=== PATIENT | female | born 1990 | race Caucasian/White ===

== ENCOUNTER 2017-03-17 11:27 | Emergency (ER) | payer MEDICAID ==
[~2017-03-17] VITALS: Ht 152.4 cm; Wt 59.0 kg
[2017-03-17 11:30] VITALS: BP 103/67
[2017-03-17] MEDS ORDERED: OXYC-323 PO (12:02)
--- NOTE | 2017-03-17 12:02 | PHYS DOC ---
Past History Past Medical History: No Pertinent History Past Surgical History: , Hysterectomy Smoking: Cigarettes Alcohol Use: None Drug Use: None Adult General Chief Complaint Chief Complaint: DENTAL PROBLEM [facility] HPI She is a pleasant otherwise healthy 26-year-old female who was seen last week for dental abscess that developed above #14 and 15 tooth. She took a week of antibiotics, a course of amoxicillin, without issue once her pain and abscess was well treated she underwent a root canal 2 days ago. Patient is noted increased pain and swelling along the site she had a tooth extraction. She is also noted a small erosion in the lip on the left. She denies any fevers, chills just pain is not well controlled 800 mg Motrin. She was prescribed. She denies any nausea, vomiting she does have a mild facial pain with headache on the side of her jaw. She has follow-up on Monday with her primary dentist. The dentist also did continue to treat her with amoxicillin. Patient's chart demonstrates an adverse reaction to amoxicillin and penicillins and the patient adamantly denies that she shows a problem with these medications. Review of Systems Review of Systems Constitutional: Denies fever or chills [] Eyes: Denies change in visual acuity, redness, or eye pain [] HENT: Denies nasal congestion or sore throat patient mainly complains of dental pain localized swelling around the surgical site.[] Respiratory: Denies cough or shortness of breath [] Cardiovascular: No additional information not addressed in HPI [] GI: Denies abdominal pain, nausea, vomiting, bloody stools or diarrhea [] : Denies dysuria or hematuria [] Musculoskeletal: Denies back pain or joint pain [] Integument: Denies rash or skin lesions [] Neurologic: Denies headache, focal weakness or sensory changes [] Allergies Allergies Allergies Coded Allergies Type Severity Reaction Last Updated Verified Amoxicillin Allergy Intermediate rash 10/14/13 No Penicillins Allergy Intermediate rash 10/14/13 No Physical Exam Physical Exam Vital signs recorded on the chart within normal limits. Constitutional: Well developed, well nourished, patient is obviously uncomfortable but nontoxic in appearance she does have some obvious localized swelling to the left side of her face were dental extraction occurred.. [] HENT: Normocephalic, atraumatic, bilateral external ears normal, oropharynx moist, no oral exudates, she has no evidence of buccal cellulitis she does have some soft tissue swelling along the gingival mucosa that was immediately placed in surgery. She is a small circular contusion and lesion to the inside of the left lip which is like secondary to the trauma that she sustained while getting the tooth extracted with overall bite block. She has no evidence of abscess or rash on the face. Nose normal. There is no active bleeding or other noted foreign body within the socket of the extracted #14 tooth. [] Eyes: PERRLA, EOMI, conjunctiva normal, no discharge. [] Neck: Normal range of motion, no tenderness, supple, no stridor. No anterior cervical lymphadenopathy Cardiovascular:Heart rate regular rhythm, no murmur [] Lungs & Thorax: Bilateral breath sounds clear to auscultation [] Skin: Warm, dry, no erythema, no rash. [] Neurologic: Alert and oriented X 3, normal motor function, normal sensory function, no focal deficits noted. Cranial nerves II-12 are intact with a normal speech pattern[] Psychologic: Patient is uncomfortable but her judgment is normal. EKG EKG [] Radiology/Procedures Radiology/Procedures [] Course & Med Decision Making Course & Med Decision Making Pertinent Labs and Imaging studies reviewed. (See chart for details) []Patient presents with soft tissue swelling and pain secondary to dental extraction. Given the timetable doubt that she has had time to develop an abscess within the structure of the gingiva. Patient is on only Motrin which is inadequate for treating her discomfort. Patient is only looking for symptomatically treatment of her pain. She is on amoxicillin which she is tolerating well although it is documented she has an allergy to penicillins and amoxicillin. She is taking them without issue in the past. She has follow-up on Monday with her present dentist Marie Disclaimer Marie Disclaimer This chart was dictated in whole or in part using Voice Recognition software in a busy, high-work load, and often noisy Emergency Department environment. It may contain unintended and wholly unrecognized errors or omissions. Departure Departure: Impression: Primary Impression: Pain, dental Additional Impression: Status post tooth extraction Disposition: HOME, SELF-CARE Condition: STABLE Referrals: PCP,NO (PCP) Patient Instructions: Dental Dry Socket, Pain Relief Preoperatively and Postoperatively Additional Instructions: My discharge plan Follow up: In addition patient is asked to followup with their primary doctor, within a week for followup examination and to address patient's ongoing medical conditions. Because patient does not have a regular medical doctor, a local physician Resource Sheet will be provided to establish care primary care. Patient is advised that in the Emergency Department primary complaints are addressed and only in light of known signs and symptoms. Patient should return immediately to the emergency department if new signs and symptoms develop or patient's condition worsens in any way. At time of discharge patient was in stable condition and had verbalized understanding of the discharge instructions. Scripts Oxycodone Hcl/Acetaminophen (PERCOCET 5-325 MG TABLET) 1 Each Tablet 1-2 TAB PO Q4-6HRS, #15 TAB Prov: FINA KING MD 03/17/17 Problem Qualifiers IFNA KING MD Mar 17, 2017 12:02
== END 2017-03-17 13:15 | disposition home or self-care (01) ==
LOC: ER 11:27
DX: K08.89 Other specified disorders of teeth and supporting structures (principal); R22.0 Localized swelling, mass and lump, head; K13.0 Diseases of lips; F17.210 Nicotine dependence, cigarettes, uncomplicated; Z98.818 Other dental procedure status; Z88.0 Allergy status to penicillin; Z88.1 Allergy status to other antibiotic agents
CPT/HCPCS: 99283

== ENCOUNTER 2021-01-19 16:36 | Emergency (ER) | payer SELFPAY ==
[~2021-01-19] VITALS: Ht 152.4 cm; Wt 70.8 kg
[~2021-01-19 16:36] MED LIST: OXYC1TAB15 PO
[2021-01-19 16:50] VITALS: BP 105/58
--- NOTE | 2021-01-19 17:39 | PHYS DOC ---
Past History Past Medical History: No Pertinent History Past Surgical History: , Hysterectomy Smoking: Cigarettes Alcohol Use: None Drug Use: None General Adult EDM: Chief Complaint: MECHANICAL FALL HPI: HPI: ".. We have [place] moved here from [place].... and we have the new kittens.. 5.. of them.. I had this fence like around them.. I went to step over.. and tripped.. fell on butt and lower back.. and twisted this lower Rt. ankle and foot really bad....I tried Ibuprofen.. but it did not help the pain at all..." Patient is a 30 year old female who presents with above hx with complaints of low back Rt. ankle /foot injury. Patient localizes pain in lumbar sacral area. Radiates into both gluteal areas. There is some midline tenderness. Patient reports no saddle loss. DTR are +2 at patella. Patient localizes pain and right forefoot and ankle. Does have some edema. There is positive foot squeeze. Distal cap refill is equal to the left foot. Patient is unable to bear weight due to pain. Patient denies other injury at this time. Patient rates her pain as 8-9 out of 10. Nothing has helped relieve it at home such as ibuprofen. Patient injury occurred just before arrival. 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 Patient has past medical history of hysterectomy. No history immunosuppression. No travel outside the [place] area. No specific ill contacts. Has not been following with primary care recently. Review of Systems: Review of Systems: Constitutional: Denies fever or chills Eyes: Denies change in visual acuity HENT: Denies nasal congestion or sore throat Respiratory: Denies cough or shortness of breath Cardiovascular: Denies chest pain or edema GI: Denies abdominal pain, nausea, vomiting, bloody stools or diarrhea : Denies dysuria Musculoskeletal: Complains of severe lower back pain and right ankle and foot pain Integument: Denies rash Neurologic: Denies headache, focal weakness or sensory changes Endocrine: Denies polyuria or polydipsia Lymphatic: Denies swollen glands Psychiatric: Denies depression or anxiety Family History: Family History: Noncontributory to presentation Current Medications: Current Meds: See nursing for home meds Allergies: Allergies: Allergies Coded Allergies Type Severity Reaction Last Updated Verified No Known Drug Allergies 01/19/21 No Physical Exam: PE: Constitutional: in acute distress, non-toxic appearance. [] HENT: Normocephalic, atraumatic, bilateral external ears normal, oropharynx moist, no oral exudates, nose normal. [] Eyes: PERRLA, EOMI, conjunctiva normal, no discharge. [] Neck: Normal range of motion, no tenderness, supple, no stridor. [] Cardiovascular:Heart rate regular rhythm, no murmur [] Lungs & Thorax: Bilateral breath sounds clear to auscultation [] Abdomen: Bowel sounds normal, soft, no tenderness, no masses, no pulsatile masses. Old surgical scar. Skin: Warm, dry, no erythema, no rash. Tattoos. Back: Lumbar sacral pain tenderness, no CVA tenderness. [] Extremities: Right ankle and foot tenderness, no cyanosis, no clubbing, ROM limited due to pain, right ankle and foot edema. [] Neurologic: Alert and oriented X 3, normal motor function, normal sensory function, no focal deficits noted. [] Psychologic: Affect anxious, tearful, crying,, judgement normal, mood normal. [] EKG: EKG: [] Radiology/Procedures: Radiology/Procedures: [place] [address] IMAGING REPORT Signed PATIENT: ROBIN ULLOA: [id number] : 1990 LOCATION: ER AGE: 30 SEX: F EXAM STATUS: REG ER ORD. PHYSICIAN: BELLA VAZQUEZ MD REASON: fall, low back injury, pain PROCEDURE: CT LUMBAR SPINE WO CONTRAST EXAMINATION: CT LUMBAR SPINE WO CLINICAL HISTORY: Fall, low back injury, pain TECHNIQUE: Spiral, high resolution axial images were obtained from the thoracolumbar junction to the sacrum with sagittal and coronal planar reconstructions. CT Dose Reduction Employed: One or more of the following individualized dose reduction techniques were utilized for this examination: 1. Automated exposure control 2. Adjustment of the mA and/or kV according to patient size 3. Use of iterative reconstruction technique. COMPARISON: None FINDINGS: 6 nonrib-bearing lumbar-type vertebrae with presumed lumbarization of S1. Alignment: Normal anatomic alignment. Osseous Structures: No evidence of acute fracture or spondylolisthesis. Incomplete fusion of the posterior elements of S1. Irregularity of the right L5- S1 facet joint with triangular shaped corticated ossicle at the pars interarticularis, possibly a normal variant versus remote spondylolysis. Degenerative changes along the facet joint and pseudoarthroses. Degenerative Changes: Mild degenerative changes right SI joint, otherwise no additional significant degenerative changes. Paraspinal Soft Tissues: Paraspinal soft tissues unremarkable. IMPRESSION: No evidence of acute osseous abnormality involving the lumbar spine. Normal variant anatomy as described, cannot exclude remote S1 spondylolysis on the right. Electronically signed by: Toribio Whitaker DO (01/19/2021 6:26 PM) [facility] DI[facility]ATED AND SIGNED BY: TORIBIO WIHTAKER DO DATE: 01/19/211810 CC: BELLA VAZQUEZ MD; PCP,NO ~MTH0 0 [][place] [address] IMAGING REPORT Signed PATIENT: RUBEN ULLOAOUNT: [id number] : 1990 LOCATION: ER AGE: 30 SEX: F EXAM STATUS: REG ER ORD. PHYSICIAN: BELLA VAZQUEZ MD REASON: fall, right akle and foot pain PROCEDURE: ANKLE RIGHT 3V Study: 1. XR FOOT_RIGHT 3 VIEWS 2. XR EXAM OF ANKLE_RIGHT 3VIEWS Indication: Fall. Comparison: None. Findings: Ankle: No acute fracture. Alignment is within normal limits. Unremarkable talar dome. Foot: No displaced fracture. Maintained joint spaces. No gross malalignment at the Lisfranc interval considering the absence of weightbearing. Impression: Right ankle and right foot: No acute fracture or traumatic malalignment. Electronically signed by: CAREN ROOT MD (01/19/2021 6:15 PM) [facility] DI[facility]ATED AND SIGNED BY: CAREN ROOT MD DATE: 01/19/211812 CC: BELLA VAZQUEZ MD; PCP,NO ~MTH0 0 Heart Score: C/O Chest Pain: N/A Risk Factors: Risk Factors: DM, Current or recent (<one month) smoker, HTN, HLP, family history of CAD, obesity. Risk Scores: Score 0 - 3: 2.5% MACE over next 6 weeks - Discharge Home Score 4 - 6: 20.3% MACE over next 6 weeks - Admit for Clinical Observation Score 7 - 10: 72.7% MACE over next 6 weeks - Early Invasive Strategies Course & Med Decision Making: Course & Med Decision Making Pertinent Labs and Imaging studies reviewed. (See chart for details) Ice packs as needed. Take Tylenol ibuprofen for pain. Follow-up primary care. Wear splint on ankle. Use crutches. Consider follow up with [facility] orthro. [phone]. Impression: 1. Trip and fall 2. Rt. Ankle Sprain 3. Lumbar Sacral Sprain [] Dragon Disclaimer: Dragon Disclaimer: This electronic medical record was generated, in whole or in part, using a voice recognition dictation system. Patient use ice packs as needed. Rest. Take Tylenol and ibuprofen for pain. Follow-up with [facility]. Wear splint. Use crutches. Follow-up primary care. Impression: 1. Trip and Fall 2. Rt foot and ankle spraing 3. Lumbar Sacral Sprain and Contusion Departure Departure: Referrals: PCP,NO (PCP) Dragon Disclaimer This chart was dictated in whole or in part using Voice Recognition software in a busy, high-work load, and often noisy Emergency Department environment. It may contain unintended and wholly unrecognized errors or omissions. BELLA VAZQUEZ MD Jan 19, 2021 17:39
[2021-01-19] MEDS ORDERED: ORPHENADRINE CITRATE 60 MG/2 ML VIAL. IM ONE (17:45)
[2021-01-19] MEDS ORDERED: MORPHINE SULFATE 10 MG/ML SYRINGE. SQ ONE (17:45)
--- NOTE | 2021-01-19 18:18 | RAD ---
Study: 1. XR FOOT_RIGHT 3 VIEWS 2. XR EXAM OF ANKLE_RIGHT 3VIEWS Indication: Fall. Comparison: None. Findings: Ankle: No acute fracture. Alignment is within normal limits. Unremarkable talar dome. Foot: No displaced fracture. Maintained joint spaces. No gross malalignment at the Lisfranc interval consid ering the absence of weightbearing. Impression: Right ankle and right foot: No acute fracture or traumatic malalignment. Electronically signed by: CAREN ROOT MD (01/19/2021 6:15 PM) [facility]
--- NOTE | 2021-01-19 18:28 | RAD ---
EXAMINATION: CT LUMBAR SPINE WO CLINICAL HISTORY: Fall, low back injury, pain TECHNIQUE: Spiral, high resolution axial images were obtained from the thoracolumbar junction to the sacrum with sagittal and coronal planar reconstructions. CT Dose Reduction Employed: One or more of the following individualized dose reduction techniques wer e utilized for this examination: 1. Automated exposure control 2. Adjustment of the mA and/or kV ac cording to patient size 3. Use of iterative reconstruction technique. COMPARISON: None FINDINGS: 6 nonrib-bearing lumbar-type vertebrae with presumed lumbarization of S1. Alignment: Normal anatomic alignment. Osseous Structures: No evidence of acute fracture or spondylolisthesis. Incomplete fusion of the post erior elements of S1. Irregularity of the right L5-S1 facet joint with triangular shaped corticated o ssicle at the pars interarticularis, possibly a normal variant versus remote spondylolysis. Degenerat mi changes along the facet joint and pseudoarthroses. Degenerative Changes: Mild degenerative changes right SI joint, otherwise no additional significant d egenerative changes. Paraspinal Soft Tissues: Paraspinal soft tissues unremarkable. IMPRESSION: No evidence of acute osseous abnormality involving the lumbar spine. Normal variant anatomy as described, cannot exclude remote S1 spondylolysis on the right. Electronically signed by: Toribio Aguirre DO (01/19/2021 6:26 PM) [facility]
== END 2021-01-19 19:02 | disposition home or self-care (01) ==
LOC: ER 16:36
DX: S33.9XXA Sprain of unspecified parts of lumbar spine and pelvis, initial encounter (principal); S93.401A Sprain of unspecified ligament of right ankle, initial encounter; F17.210 Nicotine dependence, cigarettes, uncomplicated; W01.0XXA Fall on same level from slipping, tripping and stumbling without subsequent striking against object, initial encounter; Y93.89 Activity, other specified; Y92.89 Other specified places as the place of occurrence of the external cause; Y99.8 Other external cause status
CPT/HCPCS: 72131; 73610; 73630; 96372; 99284; J2270; J2360

== ENCOUNTER 2021-07-23 09:13 | Emergency (ER) | payer MEDICAID ==
[~2021-07-23] VITALS: Ht 152.4 cm; Wt 64.0 kg
[2021-07-23 09:24] VITALS: BP 121/42
[2021-07-23] MEDS: KETOROLAC 15 MG/ML VIAL. IVP ONE (09:45)
[2021-07-23] MEDS: IV NORMAL SALINE 1,000ML 1,000 ML IV ONE (10:00)
[2021-07-23 10:26] LABS: BARBITURATES NEG (NEG); BENZODIAZEPINES POS (NEG); CANNABINOIDS NEG (NEG); COCAINE NEG (NEG); METHADONE NEG (NEG); OPIATES NEG (NEG); PHENCYCLIDINE NEG (NEG)
[2021-07-23 10:35] LABS: AMPHETAMINE/METHAMPHETAMINE POS (NEG)
[2021-07-23 10:40] LABS: BASO % 0 % (0-3); EOS # 0.2 x10^3/uL (0.0-0.7); EOS % 1 % (0-3); HEMATOCRIT 37.9 % (36.0-47.0); HEMOGLOBIN 12.8 g/dL (12.0-15.5); LYMPH % 15 % (24-48); MEAN CORPUSCULAR HEMOGLOBIN 29 pg (25-35); MEAN CORPUSCULAR HGB CONC 34 g/dL (31-37); MEAN CORPUSCULAR VOLUME 87 fL (79-100); MONO % 8 % (0-9); NEUT # 9.9 x10^3uL (1.8-7.7); NEUT % 76 % (31-73); PLATELET COUNT 223 x10^3/uL (140-400); RED BLOOD COUNT 4.38 x10^6/uL (3.50-5.40); RED CELL DISTRIBUTION WIDTH 13.3 % (11.5-14.5); WHITE BLOOD COUNT 13.1 x10^3/uL (4.0-11.0)
[2021-07-23 10:44] LABS: ALBUMIN 4.2 g/dL (3.4-5.0); ALBUMIN/GLOBULIN RATIO 1.2 (1.0-1.7); C REACTIVE PROTEIN 12.9 mg/L (0-3.3); CALCIUM 9.1 mg/dL (8.5-10.1); CREATININE 0.7 mg/dL (0.6-1.0); GFR 96.4; POTASSIUM 3.6 mmol/L (3.5-5.1); TOTAL BILIRUBIN 0.3 mg/dL (0.2-1.0); TOTAL PROTEIN 7.7 g/dL (6.4-8.2)
[2021-07-23] MEDS ORDERED: CONTRAST GIVEN. MC PRN (10:45)
[2021-07-23] MEDS: IOHEXOL 300 MG/ML 75 ML VIAL. IV ONE (11:17)
--- NOTE | 2021-07-23 11:35 | RAD ---
RS Compliance Statement: One or more of the following individualized dose reduction techniques were utilized for this examinat ion: 1. Automated exposure control 2. Adjustment of the mA and/or kV according to patient size 3. Use of iterative reconstruction technique CT MAXILLOFACIAL WITH IV CONTRAST, CT HEAD/BRAIN WO Clinical Indication: Reason: R periorb cellulitis; headache. Comparison: None. Procedure: Axial images are obtained of the head from the skull base through the vertex without IV co ntrast. Helical CT imaging of the facial bones is performed after 70 cc of Omnipaque 300 IV contrast. Findings: The ventricles and sulci are normal for the patient's age. No mass-effect, midline shift, hemorrhage, extra-axial fluid collection, or obvious acute infarction is identified. Basilar cisterns are patent. Bone windows demonstrate no acute calvarial abnormality. There is severe soft tissue swelling of the right lateral frontal and temporal scalp. There is severe right orbit preseptal soft tissue swelling. The globes and post septal orbits are intact. There is severe soft tissue swelling and subcutaneous edema of the right cheek. The visualized paranasal sinuses are clear. Mastoid air cells are well aerated. There is a 1.4 cm right thyroid nodule. No laryngeal abnormality. There is reversal of normal cervica l lordosis that may be positional or due to muscle spasm. IMPRESSION: 1. No acute intracranial abnormality. 2. The globes and post septal orbits are intact. 3. There is severe soft tissue swelling and subcutaneous edema of the preseptal right orbit, right c heek, and right temporal scalp. Cellulitis or trauma are considerations. Electronically signed by: Seb Davis MD (07/23/2021 11:32 AM) [id number]
[2021-07-23 11:48] LABS: SEDIMENTATION RATE 11 (0-25)
[2021-07-23] MEDS: CEFEPIME HCL 2 GM in IV NORMAL SALINE 100ML 100 ML IV ONE (12:00)
[2021-07-23] MEDS: VANCOMYCIN 1.5 GM in IV NORMAL SALINE 500ML 500 ML IV ONE (12:00)
[2021-07-23] MEDS ORDERED: IV NORMAL SALINE 100ML 100 ML ONE (12:05)
[2021-07-23] MEDS ORDERED: CEFEPIME HCL 2 GM VIAL IV ONE (12:05)
--- NOTE | 2021-07-23 12:43 | PHYS DOC ---
Past History Past Medical History: No Pertinent History Past Surgical History: , Hysterectomy, Other Additional Past Surgical Histo: L-WRIST Smoking: Cigarettes Alcohol Use: None Drug Use: None Adult General Chief Complaint Chief Complaint: FACE PROBLEM HPI HPI The patient is a 31-year-old female who is otherwise healthy and whose tetanus is up-to-date. She presents for evaluation of rapidly progressive right periorbital, maxillary and zygomatic facial swelling and pain with onset yesterday afternoon and progressively worsening since then. Associated generalized right-sided headache, mild. No associated fevers, vomiting, focal or lateralizing weakness, numbness or tingling, neck stiffness/pain/meningismus, vision changes, pain with extraocular movements, throat pain, difficulty swallowing, change in voice, shortness of breath. Patient has a small abrasion to her right maxillary face which she states is a few days old and arose because her child scratched her face. Patient is alert and pleasantly and appropriately interactive and in no acute distress with appropriate vital signs upon initial evaluation here in the emergency department. Review of Systems Review of Systems A 12 point review of systems was completed and was negative except where noted in HPI above. Current Medications Current Medications Current Medications Medications (Trade) Dose Ordered Sig/Deniz Start Time Stop Time Status Last Admin Dose Admin Cefepime HCl (Maxipime) 2 gm STK-MED ONCE 07/23/21 12:05 07/23/21 12:05 DC Cefepime HCl 2 gm/ Sodium Chloride 100 ml @ 200 mls/hr 1X ONCE 07/23/21 12:00 07/23/21 12:29 DC 07/23/21 12:00 200 MLS/HR Info (Do NOT chart on this entry -- for MONITORING) 1 each PRN DAILY PRN 07/23/21 10:45 07/25/21 10:44 Iohexol (Omnipaque 300 Mg/ml) 75 ml 1X ONCE 07/23/21 10:00 07/23/21 10:44 DC 07/23/21 11:17 75 ML Ketorolac Tromethamine (Toradol 15mg Vial) 15 mg 1X ONCE 07/23/21 09:45 07/23/21 11:01 DC 07/23/21 09:45 15 MG Sodium Chloride 100 ml @ As Directed STK-MED ONCE 07/23/21 12:05 07/23/21 12:05 DC Vancomycin HCl 1.5 gm/Sodium Chloride 500 ml @ 250 mls/hr 1X ONCE 07/23/21 12:00 07/23/21 13:59 Allergies Allergies Allergies Coded Allergies Type Severity Reaction Last Updated Verified Penicillins Allergy Unknown 07/23/21 Yes amoxicillin Allergy Unknown 07/23/21 Yes Physical Exam Physical Exam Younger female appearing nontoxic and in no acute distress. Head is normocephalic and atraumatic. There is marked right periorbital edema with mild superimposed erythema.edema and erythema extend inferiorly over the maxillary fa ce on the right and laterally over the zygomatic face on the right. Neck is supple and nontender. No stiffness/rigidity/meningismus seen and patient ranges her neck fully in all dimensions out discomfort or distress. Kernig's and Brudzinski's are negative. Oropharynx is moist. Lungs are clear to auscultation at all stations. There is a normal S1 and S2 without rubs or gallops and capillary refill is appropriate, less than 2 seconds globally. Abdomen is soft, nontender and nondistended. Skin is warm and dry without cyanosis, clubbing or edema. Psychiatrically, the patient demonstrates appropriate mood and affect and is alert. Current Patient Data Vital Signs Vital Signs Date Time Temp Pulse Resp B/P (MAP) Pulse Ox O2 Delivery O2 Flow Rate FiO2 07/23/21 09:24 98.4 96 14 121/42 (68) 96 Room Air Lab Results Laboratory Tests Test 07/23/21 09:19 07/23/21 09:50 Urine Opiates Screen Neg (NEG) Urine Methadone Screen Neg (NEG) Urine Barbiturates Neg (NEG) Urine Phencyclidine Screen Neg (NEG) Urine Amphetamine/Methamphetamine Pos (NEG) Urine Benzodiazepines Screen Pos (NEG) Urine Cocaine Screen Neg (NEG) Urine Cannabinoids Screen Neg (NEG) Urine Ethyl Alcohol Neg (NEG) White Blood Count 13.1 x10^3/uL (4.0-11.0) H Red Blood Count 4.38 x10^6/uL (3.50-5.40) Hemoglobin 12.8 g/dL (12.0-15.5) Hematocrit 37.9 % (36.0-47.0) Mean Corpuscular Volume 87 fL (79-100) Mean Corpuscular Hemoglobin 29 pg (25-35) Mean Corpuscular Hemoglobin Concent 34 g/dL (31-37) Red Cell Distribution Width 13.3 % (11.5-14.5) Platelet Count 223 x10^3/uL (140-400) Neutrophils (%) (Auto) 76 % (31-73) H Lymphocytes (%) (Auto) 15 % (24-48) L Monocytes (%) (Auto) 8 % (0-9) Eosinophils (%) (Auto) 1 % (0-3) Basophils (%) (Auto) 0 % (0-3) Neutrophils # (Auto) 9.9 x10^3uL (1.8-7.7) H Lymphocytes # (Auto) 2.0 x10^3/uL (1.0-4.8) Monocytes # (Auto) 1.0 x10^3/uL (0.0-1.1) Eosinophils # (Auto) 0.2 x10^3/uL (0.0-0.7) Basophils # (Auto) 0.0 x10^3/uL (0.0-0.2) Erythrocyte Sedimentation Rate 11 (0-25) Sodium Level 142 mmol/L (136-145) Potassium Level 3.6 mmol/L (3.5-5.1) Chloride Level 106 mmol/L (98-107) Carbon Dioxide Level 27 mmol/L (21-32) Anion Gap 9 (6-14) Blood Urea Nitrogen 11 mg/dL (7-20) Creatinine 0.7 mg/dL (0.6-1.0) Estimated GFR (Cockcroft-Gault) 96.4 BUN/Creatinine Ratio 16 (6-20) Glucose Level 109 mg/dL (70-99) H Calcium Level 9.1 mg/dL (8.5-10.1) Total Bilirubin 0.3 mg/dL (0.2-1.0) Aspartate Amino Transferase (AST) 15 U/L (15-37) Alanine Aminotransferase (ALT) 21 U/L (14-59) Alkaline Phosphatase 72 U/L (46-116) C-Reactive Protein 12.9 mg/L (0-3.3) H Total Protein 7.7 g/dL (6.4-8.2) Albumin 4.2 g/dL (3.4-5.0) Albumin/Globulin Ratio 1.2 (1.0-1.7) EKG EKG [] Radiology/Procedures Radiology/Procedures PQRS Compliance Statement: One or more of the following individualized dose reduction techniques were utili zed for this examination: 1. Automated exposure control 2. Adjustment of the mA and/or kV according to patient size 3. Use of iterative reconstruction technique CT MAXILLOFACIAL WITH IV CONTRAST, CT HEAD/BRAIN WO Clinical Indication: Reason: R periorb cellulitis; headache. Comparison: None. Procedure: Axial images are obtained of the head from the skull base through the vertex without IV contrast. Helical CT imaging of the facial bones is performed after 70 cc of Omnipaque 300 IV contrast. Findings: The ventricles and sulci are normal for the patient's age. No mass-effect, midline shift, hemorrhage, extra-axial fluid collection, or obvious acute infarction is identified. Basilar cisterns are patent. Bone windows demonstrate no acute calvarial abnormality. There is severe soft tissue swelling of the right lateral frontal and temporal scalp. There is severe right orbit preseptal soft tissue swelling. The globes and post septal orbits are intact. There is severe soft tissue swelling and subcutaneous edema of the right cheek. The visualized paranasal sinuses are clear. Mastoid air cells are well aerated. There is a 1.4 cm right thyroid nodule. No laryngeal abnormality. There is reversal of normal cervical lordosis that may be positional or due to muscle spasm. IMPRESSION: 1. No acute intracranial abnormality. 2. The globes and post septal orbits are intact. 3. There is severe soft tissue swelling and subcutaneous edema of the preseptal right orbit, right cheek, and right temporal scalp. Cellulitis or trauma are considerations. Electronically signed by: Seb Leyva MD (07/23/2021 11:32 AM) [id number] DICTATED AND SIGNED BY: SEB LEYVA MD DATE: 07/23/211121 CC: CHRISTIAN LOPEZ MD; PCP,NO ~MTH0 0 Heart Score C/O Chest Pain: No Risk Factors: Risk Factors: DM, Current or recent (<one month) smoker, HTN, HLP, family history of CAD, obesity. Risk Scores: Risk Factors: DM, Current or recent (<one month) smoker, HTN, HLP, family history of CAD, obesity. Course & Med Decision Making Course & Med Decision Making 31-year-old female presenting for rapidly progressive right periorbital cellulitis. No orbital or retrobulbar involvement by CT imaging as above. Patient is positive for amphetamine/methamphetamine on UDS. Given this, will cover broadly with vancomycin and cefepime (patient has a mild penicillin allergy with rash history in the past). Feel the patient will benefit from transfer to a facility with ENT available should they be needed. Therefore, will transfer to [facility] where the patient is graciously accepted for admission by a hospitalist resident on behalf of Dr. Joseph marroquin. Dragon Disclaimer Dragon Disclaimer This electronic medical record was generated, in whole or in part, using a voice recognition dictation system. Departure Departure: Impression: Primary Impression: Periorbital cellulitis of right eye Additional Impressions: Facial cellulitis Amphetamine abuse Disposition: 01 HOME / SELF CARE / HOMELESS Condition: STABLE Referrals: PCP,NO (PCP) Problem Qualifiers CHRISTIAN LOPEZ MD Jul 23, 2021 12:43
== END 2021-07-23 14:55 | disposition home or self-care (01) ==
LOC: ER 09:13
DX: L03.213 Periorbital cellulitis (principal); L03.211 Cellulitis of face; F15.10 Other stimulant abuse, uncomplicated; F17.210 Nicotine dependence, cigarettes, uncomplicated; Z20.822 Contact with and (suspected) exposure to COVID-19; Z88.0 Allergy status to penicillin; Z88.1 Allergy status to other antibiotic agents
CPT/HCPCS: 36415; 70450; 70487; 80053; 80307; 85025; 85651; 86140; 87040; 87426; 96361; 96365; 96368; 96375; 99285; J0692; J1885; J3370; J7030; J7040; Q9967

== ENCOUNTER 2021-08-28 08:45 | Emergency (ER) | payer MEDICAID, OTHER ==
[~2021-08-28] VITALS: Ht 152.4 cm; Wt 62.1 kg
--- NOTE | 2021-08-28 09:24 | PHYS DOC ---
Past History Past Medical History: No Pertinent History Past Surgical History: , Hysterectomy, Other Additional Past Surgical Histo: L-WRIST Smoking: Cigarettes Alcohol Use: None Drug Use: None General Adult EDM: Chief Complaint: FACE PROBLEM HPI: HPI: Patient is a 31-year-old female coming in for right facial swelling. Patient says that started about 2 days ago, states she has it that she had acne which she tried to pop. Patient has a history significant for right facial cellulitis last month, states she was originally transferred [facility] but then requested transfer to [place] and was there for about 10 days. Patient was discharged with Augmentin and Bactrim which she says she completed and got completely better. Denies any dental problems or injury, denies any purulent discharge. Had a fever of 100.3 yesterday. Has been taking Tylenol ibuprofen for pain Review of Systems: Review of Systems: All other systems within normal limits except for as noted in the HPI Allergies: Allergies: Allergies Coded Allergies Type Severity Reaction Last Updated Verified Penicillins Allergy Unknown 07/23/21 Yes amoxicillin Allergy Unknown 07/23/21 Yes Physical Exam: PE: Constitutional: Well developed, well nourished, no acute distress, non-toxic appearance. [] HENT: Normocephalic, atraumatic, bilateral external ears normal, nose normal. Swelling and induration of right cheek. [] Eyes: PERRLA, conjunctiva normal, no discharge. [] Neck: No rigidity, supple, no stridor. [] Cardiovascular: Regular rate and rhythm, brisk cap refill [] Lungs & Thorax: Non labored symmetric respirations, no tachypnea or respiratory distress [] Abdomen: Soft, nondistended. Skin: Warm, dry, no erythema, no rash. [] Back: Unremarkable Extremities: No deformities, range of motion grossly intact, no lower extremity edema [] Neurologic: Alert and oriented X 3, no focal deficits noted. [] Psychologic: Affect normal, judgement normal, mood normal. [] EKG: EKG: [] Radiology/Procedures: Radiology/Procedures: [address] [address] IMAGING REPORT Signed PATIENT: ROBIN ULLOA: [id number] : 1990 LOCATION: ER AGE: 31 SEX: F EXAM STATUS: REG ER ORD. PHYSICIAN: KASANDRA ECHAVARRIA MD REASON: abscess PROCEDURE: CT MAXILLOFACIAL W/CONTRAST PQRS Compliance Statement: One or more of the following individualized dose reduction techniques were ut ilized for this examination: 1. Automated exposure control 2. Adjustment of the mA and/or kV according to patient size 3. Use of iterative reconstruction technique CT MAXILLOFACIAL WITH IV CONTRAST Clinical Indication: Reason: abscess / Spl. Instructions: omni 300 75ml iv / History: Comparison: CT from 07/23/2021. Procedure: Helical CT imaging of the facial bones is performed after 75 cc of Omnipaque 300 IV contrast. Findings: Progressive severe soft tissue subcutaneous swelling involving the right preseptal and right cheek area no evidence of peripheral enhancing fluid collection is to suggest abscess formation. There is associated increased dermal thickening There is extensive edema layering along the right head librarian muscle as well as edematous enlargement and phlegmonous changes of the right buccinator muscle belly. Dentition is within normal limits. There is no evidence of odontogenic abscess. Bone windows demonstrate no acute abnormality. There is decreased soft tissue swelling involving the right lateral frontal and temporal scalp. The globes and post septal orbits are intact. Aerodigestive tract is patent. The visualized paranasal sinuses are clear. Mastoid air cells are well aerated. Vasculature is normal in course and caliber. No pathologically enlarged cervical adenopathy. IMPRESSION: 1. Worsening severe soft tissue swelling and subcutaneous edema involving the right preseptal and right cheek area. There is no abscess formation at this time. Findings favor worsening cellulitis. 2. The globes and post septal orbits are intact. Electronically signed by: Jez Tavarez DO (08/28/2021 10:33 AM) [id number] DICTATED AND SIGNED BY: JEZ TAVAREZ DO DATE: 08/28/21 1014 CC: KASANDRA ECHAVARRIA MD; PCP,NO ~ [] Heart Score: C/O Chest Pain: No Risk Factors: Risk Factors: DM, Current or recent (<one month) smoker, HTN, HLP, family history of CAD, obesity. Risk Scores: Score 0 - 3: 2.5% MACE over next 6 weeks - Discharge Home Score 4 - 6: 20.3% MACE over next 6 weeks - Admit for Clinical Observation Score 7 - 10: 72.7% MACE over next 6 weeks - Early Invasive Strategies Course & Med Decision Making: Course & Med Decision Making Pertinent Labs and Imaging studies reviewed. (See chart for details) Patient started on vancomycin and consult placed to [facility]. Accepted by hospitalist [] Marie Disclaimer: Marie Disclaimer: This electronic medical record was generated, in whole or in part, using a voice recognition dictation system. Departure Departure: Impression: Primary Impression: Facial cellulitis Disposition: 02 SHORT TERM HOSPITAL Condition: STABLE Referrals: PCP,NO (PCP) KASANDRA ECHAVARRIA MD Aug 28, 2021 09:24
[2021-08-28] MEDS ORDERED: IOHEXOL 300 MG/ML 75 ML VIAL. IV ONE (09:30)
[2021-08-28] MEDS ORDERED: KETOROLAC 15 MG/ML VIAL. IVP ONE (09:45)
[2021-08-28 09:49] LABS: BASO % 0 % (0-3); EOS % 0 % (0-3); HEMATOCRIT 38.9 % (36.0-47.0); HEMOGLOBIN 12.8 g/dL (12.0-15.5); LYMPH # 1.4 x10^3/uL (1.0-4.8); LYMPH % 11 % (24-48); MEAN CORPUSCULAR HEMOGLOBIN 29 pg (25-35); MEAN CORPUSCULAR HGB CONC 33 g/dL (31-37); MEAN CORPUSCULAR VOLUME 87 fL (79-100); MONO # 1.1 x10^3/uL (0.0-1.1); MONO % 8 % (0-9); NEUT # 10.9 x10^3uL (1.8-7.7); NEUT % 81 % (31-73); PLATELET COUNT 226 x10^3/uL (140-400); RED BLOOD COUNT 4.47 x10^6/uL (3.50-5.40); RED CELL DISTRIBUTION WIDTH 13.5 % (11.5-14.5); WHITE BLOOD COUNT 13.5 x10^3/uL (4.0-11.0)
[2021-08-28 09:55] LABS: CALCIUM 9.1 mg/dL (8.5-10.1); CREATININE 0.8 mg/dL (0.6-1.0); GFR 82.6; POTASSIUM 3.6 mmol/L (3.5-5.1)
[2021-08-28 10:00] LABS: ALBUMIN 4.1 g/dL (3.4-5.0); ALBUMIN/GLOBULIN RATIO 1.2 (1.0-1.7); TOTAL BILIRUBIN 0.5 mg/dL (0.2-1.0); TOTAL PROTEIN 7.5 g/dL (6.4-8.2)
--- NOTE | 2021-08-28 10:35 | RAD ---
RS Compliance Statement: One or more of the following individualized dose reduction techniques were utilized for this examinat ion: 1. Automated exposure control 2. Adjustment of the mA and/or kV according to patient size 3. Use of iterative reconstruction technique CT MAXILLOFACIAL WITH IV CONTRAST Clinical Indication: Reason: abscess / Spl. Instructions: omni 300 75ml iv / History: Comparison: CT from 07/23/2021. Procedure: Helical CT imaging of the facial bones is performed after 75 cc of Omnipaque [address] Findings: Progressive severe soft tissue subcutaneous swelling involving the right preseptal and right cheek ar ea no evidence of peripheral enhancing fluid collection is to suggest abscess formation. There is ass ociated increased dermal thickening There is extensive edema layering along the right can stacker musc le as well as edematous enlargement and phlegmonous changes of the right buccinator muscle belly. Den tition is within normal limits. There is no evidence of odontogenic abscess. Bone windows demonstrate no acute abnormality. There is decreased soft tissue swelling involving the right lateral frontal an d temporal scalp. The globes and post septal orbits are intact. Aerodigestive tract is patent. The visualized paranasal sinuses are clear. Mastoid air cells are well aerated. Vasculature is normal in course and caliber. No pathologically enlarged cervical adenopathy. IMPRESSION: 1. Worsening severe soft tissue swelling and subcutaneous edema involving the right preseptal and ri ght cheek area. There is no abscess formation at this time. Findings favor worsening cellulitis. 2. The globes and post septal orbits are intact. Electronically signed by: Andrade Quintanilla DO (08/28/2021 10:33 AM) [id number]
[2021-08-28] MEDS ORDERED: VANCOMYCIN 1.5 GM in IV NORMAL SALINE 500ML 500 ML IV ONE (12:00)
[2021-08-28 18:20] VITALS: BP 99/59
== END 2021-08-28 18:28 | disposition short-term general hospital (02) ==
LOC: ER 08:45
DX: L03.211 Cellulitis of face (principal); F17.210 Nicotine dependence, cigarettes, uncomplicated; Z88.0 Allergy status to penicillin; Z88.1 Allergy status to other antibiotic agents
CPT/HCPCS: 36415; 70487; 80053; 85025; 87040; 96365; 96366; 96375; 99285; J1885; J3010; J3370; J7040; Q9967